=== PATIENT | male | born 2000 | race Caucasian/White ===

== ENCOUNTER 2024-07-10 14:55 | Emergency (ER) | payer OTHER, SELFPAY ==
[2024-07-10 14:59] VITALS: BP 102/87; PULSE 82; RESP 20; TEMP 36.2; O2SAT 100
--- NOTE | 2024-07-10 16:01 | ED.MALEGU ---
HPI - Male Genitourinary General Chief complaint: Urogenital-Male <Chel Nayak PA-C - Last Filed: 07/11/24 09:20> Stated complaint: decreased urination, flank pain <Chel Nayak PA-C - Last Filed: 07/11/24 09:20> Time Seen by Provider: 07/10/24 16:01 <Chel Nayak PA-C - Last Filed: 07/11/24 09:20> Focused HPI: This is a 23 year old male that presents to the ER for left flank pain ongoing over the last couple of days. Reports associated nausea, vomiting. Reports some dysuria. Denies hematuria. GENERAL: Well-appearing, well-nourished, and in no acute distress. HEAD: Normocephalic, atraumatic. CHEST: Clear to auscultation. ?No respiratory distress. HEART: Regular rate and rhythm.? NEURO: ?Alert and oriented x3. Patient screened in triage and initial orders placed.? ?Additional care and disposition to be based upon?diagnostic testing and treatment. <Chel Nayak PA-C - Last Filed: 07/11/24 09:20> History of Present Illness HPI Narrative: I agree with the assessment and documentation of Chel Nayak PA-C. <Melody Orellana, LATASHA - Last Filed: 07/10/24 19:06> Related Data Allergies/Adverse reactions: Allergies Allergy/AdvReac Type Severity Reaction Status Date / Time No Known Allergies Allergy Verified 07/10/24 14:57 <Chel Nayak PA-C - Last Filed: 07/11/24 09:20> Review of Systems Review of Systems: All systems reviewed & are unremarkable except as noted in HPI and below <Melody Orellana, LATASHA - Last Filed: 07/10/24 19:06> Exam Narrative: GENERAL: Well appearing, well-nourished, non-toxic, in no acute distress. HEAD: Normocephalic, atraumatic. NECK: Supple. No adenopathy, no masses. RESPIRATORY: Airway patent, respirations nonlabored. Clear to auscultation bilaterally, no rales, rhonchi, wheezing. CARDIOVASCULAR: Regular rate and rhythm without murmurs, rubs, or gallops. Peripheral pulses 2+ and equal bilaterally. ABDOMINAL: Soft, nontender, nondistended, no hepatosplenomegaly. Normoactive BS. MUSCULOSKELETAL: Moves all extremities. Strength/ROM intact without gross deformities. SKIN: Warm, dry, normal color. No rashes. NEURO: A&O X3. Speech clear. Cranial nerves II-XII grossly intact. Steady gait. No ataxic movements. PSYCHIATRIC: Appropriate mood and affect. Normal interaction. <Melody Orellana APRN - Last Filed: 07/10/24 19:06> Course Vital Signs Vital signs: Vital Signs Temperature 97.1 F L 07/10/24 14:59 Pulse Rate 82 07/10/24 14:59 Respiratory Rate 20 07/10/24 14:59 Blood Pressure 102/87 07/10/24 14:59 Pulse Oximetry 100 07/10/24 14:59 Oxygen Delivery Room Air 07/10/24 14:59 Temperature 97.1 F L 07/10/24 14:59 Pulse Rate 85 07/10/24 18:59 Respiratory Rate 16 07/10/24 18:59 Blood Pressure 126/68 07/10/24 18:59 Pulse Oximetry 99 07/10/24 18:59 Oxygen Delivery Room Air 07/10/24 14:59 <Chel Nayak PA-C - Last Filed: 07/11/24 09:20> Vital Signs Temperature 97.1 F L 07/10/24 14:59 Pulse Rate 82 07/10/24 14:59 Respiratory Rate 20 07/10/24 14:59 Blood Pressure 102/87 07/10/24 14:59 Pulse Oximetry 100 07/10/24 14:59 Oxygen Delivery Room Air 07/10/24 14:59 Temperature 97.1 F L 07/10/24 14:59 Pulse Rate 85 07/10/24 18:59 Respiratory Rate 16 07/10/24 18:59 Blood Pressure 126/68 07/10/24 18:59 Pulse Oximetry 99 07/10/24 18:59 Oxygen Delivery Room Air 07/10/24 14:59 <Melody Orellana APRN - Last Filed: 07/10/24 19:06> MDM - Male Genitourinary MDM Narrative Medical decision making narrative: This is a 23 year old male that presents to the ER for left flank pain ongoing over the last couple of days. Reports associated nausea, vomiting. Reports some dysuria. Denies hematuria. Labs Ordered: CBC, CMP, lipase, UA Imaging Ordered: CT abdomen pelvis w/o con Medications Ordered: Toradol IV, Dilaudid IV, 1 L normal saline IV bolus Results: Patient's CT abdomen pelvis scan indicates Left lower ureteric stone with left hydroureter and hydronephrotic changes. No evidence of appendicitis, diverticulitis or intestinal obstruction. Left lower lobe granuloma with adjacent small nodules which may be granulomas 6 months follow-up chest CT is advised. Diagnosis: L lower ureteric stone Consults: urology (outpatient) Patient Education/Shared MDM: Results shared with patient. He endorses significant pain improvement following medication administration. Patient strongly advised to maintain hydration status upon discharge and follow-up with urology. He will be discharged home with prescription for Flomax and [place]. Strict return precautions provided. Patient verbalized understanding is in agreement with plan. Vital signs stable at time of discharge. All questions answered. <Melody Orellana APRN - Last Filed: 07/10/24 19:06> Differential Diagnosis Differential diagnosis: Likely urinary tract infection, urethritis, prostatitis, acute retention of urine and other (kidney stone) <Melody Orellana APRN - Last Filed: 07/10/24 19:06> Lab Data Attestation: I reviewed the patient's lab results. <Melody Orellana APRN - Last Filed: 07/10/24 19:06> Result diagrams: 07/10/24 16:39 07/10/24 16:39 <Chel Nayak PA-C - Last Filed: 07/11/24 09:20> Labs: Lab Results 07/10/24 Range/Units 16:39 WBC 13.9 H (4.5-10.0) K/mm3 RBC 5.24 (4.6-6.20) M/mm3 Hgb 14.9 (14.0-18.0) g/dL Hct 45.9 (42.0-52.0) % MCV 87.6 (80-100) fl MCH 28.4 (26-34) pg MCHC 32.5 (32-36) g/dl RDW 14.0 (11.5-14.5) % Plt Count 264 (150-375) k/mm3 MPV 11.0 H (7.4-10.4) fl Immature Gran % (Auto) 0.2 (0-0.5) % Neut % (Auto) 91.6 H (45.5-73.1) % Lymph % (Auto) 6.1 L (18.3-44.2) % [place] % (Auto) 1.9 L (2.6-8.5) % Eos % (Auto) 0.1 (0-4.4) % Baso % (Auto) 0.1 L (0.2-1.2) % Lymph # (Auto) 0.84 L (0.9-3.2) K/mm3 [place] # (Auto) 0.3 (0.1-0.6) K/mm3 Eos # (Auto) 0.0 (0-0.3) K/mm3 Baso # (Auto) 0.0 (0.0-0.1) K/mm3 Abs Immat Gran (auto) 0.03 (0.00-0.031) K/mm3 Absolute Neuts (auto) 12.7 H (1.3-6.7) K/mm3 Absolute Nucleated RBC 0.000 (0.0-0.012) K/mm3 Nucleated RBC % 0.0 (0.0-0.2) % Sodium 141 (137-145) mmol/L Potassium 3.9 (3.4-5.0) mmol/L Chloride 102 (98-107) mmol/L Carbon Dioxide 24 (22-30) mmol/L Anion Gap 15 H (4-12) mmol/L BUN 15 (9-20) mg/dL Creatinine 1.31 H (0.7-1.3) mg/dL Estim Creat Clear Calc 85 ml/min Estimated GFR > 60 (59 - ) Glucose 94 (65-110) mg/dL Calcium 9.9 (8.4-10.2) mg/dL Total Bilirubin 1.0 (0.2-1.3) mg/dL AST 20 (17-59) U/L ALT 25 (6-50) U/L Alkaline Phosphatase 73 (38-126) U/L Total Protein 8.0 (6.3-8.2) g/dL Albumin 4.9 (3.5-5.1) g/dL Lipase 46 (23-300) U/L Urine Color Dark yellow (Yellow) Urine Appearance Cloudy H (Clear) Urine pH 5.5 (5.0-9.0) Ur Specific [place] 1.031 (1.001-1.035) Urine Protein 1+ H (Negative) mg/dL Urine Glucose (UA) Negative (Negative) mg/dL Urine Ketones 4+ H (Negative) mg/dL Ur Blood (Man) 3+ H (Negative) Urine Nitrate Negative (Negative) Urine Bilirubin Negative (Negative) Urine Urobilinogen 1.0 (<2.0) mg/dL Leukocyte Esterase Rfl Negative (Negative) FEI/UL Urine RBC >100 H (0-2) /hpf Urine WBC 0-5 (0-3) /hpf Ur Squamous Epith Cells None seen (Few) /hpf Urine Bacteria None seen /hpf Urine Casts 3-5 <Chel Nayak PA-C - Last Filed: 07/11/24 09:20> Lab Results 07/10/24 Range/Units 16:39 WBC 13.9 H (4.5-10.0) K/mm3 RBC 5.24 (4.6-6.20) M/mm3 Hgb 14.9 (14.0-18.0) g/dL Hct 45.9 (42.0-52.0) % MCV 87.6 (80-100) fl MCH 28.4 (26-34) pg MCHC 32.5 (32-36) g/dl RDW 14.0 (11.5-14.5) % Plt Count 264 (150-375) k/mm3 MPV 11.0 H (7.4-10.4) fl Immature Gran % (Auto) 0.2 (0-0.5) % Neut % (Auto) 91.6 H (45.5-73.1) % Lymph % (Auto) 6.1 L (18.3-44.2) % [place] % (Auto) 1.9 L (2.6-8.5) % Eos % (Auto) 0.1 (0-4.4) % Baso % (Auto) 0.1 L (0.2-1.2) % Lymph # (Auto) 0.84 L (0.9-3.2) K/mm3 [place] # (Auto) 0.3 (0.1-0.6) K/mm3 Eos # (Auto) 0.0 (0-0.3) K/mm3 Baso # (Auto) 0.0 (0.0-0.1) K/mm3 Abs Immat Gran (auto) 0.03 (0.00-0.031) K/mm3 Absolute Neuts (auto) 12.7 H (1.3-6.7) K/mm3 Absolute Nucleated RBC 0.000 (0.0-0.012) K/mm3 Nucleated RBC % 0.0 (0.0-0.2) % Sodium 141 (137-145) mmol/L Potassium 3.9 (3.4-5.0) mmol/L Chloride 102 (98-107) mmol/L Carbon Dioxide 24 (22-30) mmol/L Anion Gap 15 H (4-12) mmol/L BUN 15 (9-20) mg/dL Creatinine 1.31 H (0.7-1.3) mg/dL Estim Creat Clear Calc 85 ml/min Estimated GFR > 60 (59 - ) Glucose 94 (65-110) mg/dL Calcium 9.9 (8.4-10.2) mg/dL Total Bilirubin 1.0 (0.2-1.3) mg/dL AST 20 (17-59) U/L ALT 25 (6-50) U/L Alkaline Phosphatase 73 (38-126) U/L Total Protein 8.0 (6.3-8.2) g/dL Albumin 4.9 (3.5-5.1) g/dL Lipase 46 (23-300) U/L Urine Color Dark yellow (Yellow) Urine Appearance Cloudy H (Clear) Urine pH 5.5 (5.0-9.0) Ur Specific [place] 1.031 (1.001-1.035) Urine Protein 1+ H (Negative) mg/dL Urine Glucose (UA) Negative (Negative) mg/dL Urine Ketones 4+ H (Negative) mg/dL Ur Blood (Man) 3+ H (Negative) Urine Nitrate Negative (Negative) Urine Bilirubin Negative (Negative) Urine Urobilinogen 1.0 (<2.0) mg/dL Leukocyte Esterase Rfl Negative (Negative) FEI/UL Urine RBC >100 H (0-2) /hpf Urine WBC 0-5 (0-3) /hpf Ur Squamous Epith Cells None seen (Few) /hpf Urine Bacteria None seen /hpf Urine Casts 3-5 <Melody Orellana APRN - Last Filed: 07/10/24 19:06> Imaging Data Attestation: I personally reviewed and interpreted this imaging study as follows: <Melody Orellana APRN - Last Filed: 07/10/24 19:06> Radiologist's impression: Impressions Abdomen/Pelvis CT 07/10/24 16:23 IMPRESSION: Left lower ureteric stone with left hydroureter and hydronephrotic changes. No evidence of appendicitis, diverticulitis or intestinal obstruction. Left lower lobe granuloma with adjacent small nodules which may be granulomas 6 months follow-up chest CT is advised. <Melody Orellana APRN - Last Filed: 07/10/24 19:06> Critical Care Time Critical Care Time Critical Care Time: No <Chel Nayak PA-C - Last Filed: 07/11/24 09:20> Discharge Plan Discharge Clinical Impression: Kidney stone on left side, Acute left flank pain <Chel Nayak PA-C - Last Filed: 07/11/24 09:20> Patient Disposition: Home, Self-Care <Chel Nayak PA-C - Last Filed: 07/11/24 09:20> Condition: Stable <HILDA Hong Last Filed: 07/11/24 09:20> Instructions: Antibiotic Form, Kidney Stones (ED), How to Strain Your Urine (ED), Flank Pain (ED) <HILDA Hong Last Filed: 07/11/24 09:20> Additional Instructions: Please return to the ER with an worsening symptoms. Follow-up with primary care provider in the next 2-3 days and urology as soon as possible. Take all medications as prescribed. <Chel Nayak PA-C - Last Filed: 07/11/24 09:20> Patient Language: Maori <HILDA Hong Last Filed: 07/11/24 09:20> Prescriptions: New hydrocodone-acetaminophen 5-325 mg tablet 1 tablet PO Q4H PRN (Reason: pain) Qty: 10 0RF tamsulosin [Flomax] 0.4 mg capsule 0.4 mg PO DAILY Qty: 10 0RF naproxen 500 mg tablet 500 mg PO BID PRN (Reason: pain) Qty: 10 0RF <Chel Nayak PA-C - Last Filed: 07/11/24 09:20> Follow-up/Referrals: Alisson Hurd MD [Physician] - (urology) Sloan Dodd MD [Physician] - (primary care) PHYSICIAN NOT ON STAFF,NONSTAFF [Non-Staff] - <Chel Nayak PA-C - Last Filed: 07/11/24 09:20> Stand Alone Forms: Work/School Release IP <Chel Nayak PA-C - Last Filed: 07/11/24 09:20> Time of Disposition: 19:07 <Chel Nayak PA-C - Last Filed: 07/11/24 09:20> 19:07 <Melody Orellana APRN - Last Filed: 07/10/24 19:06>
[2024-07-10 16:38] VITALS: BP 142/74; PULSE 79; RESP 13; O2SAT 100
[2024-07-10 17:00] LABS: Basophils Percent Auto 0.1 % (0.2-1.2); Eosinophils Percent Auto 0.1 % (0-4.4); Hematocrit 45.9 % (42.0-52.0); Hemoglobin 14.9 g/dL (14.0-18.0); Immature Granulocyte Absolute 0.03 K/mm3 (0.00-0.031); Immature Granulocyte Percent A 0.2 % (0-0.5); Lymphocytes Absolute Auto 0.84 K/mm3 (0.9-3.2); Lymphocytes Percent Auto 6.1 % (18.3-44.2); Mean Corpuscular HGB Conc 32.5 g/dl (32-36); Mean Corpuscular Hemoglobin 28.4 pg (26-34); Mean Corpuscular Volume 87.6 fl (80-100); Monocytes Absolute Auto 0.3 K/mm3 (0.1-0.6); Monocytes Percent Auto 1.9 % (2.6-8.5); Neutrophils Absolute Auto 12.7 K/mm3 (1.3-6.7); Neutrophils Percent Auto 91.6 % (45.5-73.1); Platelet Count Result 264 k/mm3 (150-375); Red Blood Count 5.24 M/mm3 (4.6-6.20); White Blood Count 13.9 K/mm3 (4.5-10.0)
[2024-07-10 17:03] LABS: Add Urine Microscopic? YES; Appearance Urine Cloudy (Clear); Bacteria Urine None Seen /hpf; Bilirubin Urine Negative (Negative); Blood Urine 3+ (Negative); Color Urine Dark Yellow (Yellow); Glucose Urine UA Negative (Negative); Ketones Urine 4+ mg/dL (Negative); Leukocyte Esterase Ur Negative LEU/UL (Negative); Nitrate Urine Negative (Negative); Protein Urine 1+ mg/dL (Negative); RBC Urine >100 /hpf (0-2); Specific Grav Ur 1.031 (1.001-1.035); Squamous Epithelial Cell Urine None Seen /hpf (Few); WBC Urine 0-5 /hpf (0-3); pH Urine 5.5 (5.0-9.0)
[2024-07-10 17:11] LABS: Alanine Aminotransferase 25 U/L (6-50); Albumin Level 4.9 g/dL (3.5-5.1); Alkaline Phosphatase 73 U/L (38-126); Anion Gap 15 mmol/L (4-12); Aspartate Amino Transferase 20 U/L (17-59); Blood Urea Nitrogen 15 mg/dL (9-20); Calcium 9.9 mg/dL (8.4-10.2); Carbon Dioxide 24 mmol/L (22-30); Chloride 102 mmol/L (98-107); Estimated CRCL calculation 85 ml/min; Estimated Glomerular Filt Rate > 60; Glucose 94 mg/dL (65-110); Lipase 46 U/L (23-300); Potassium 3.9 mmol/L (3.4-5.0); Sodium 141 mmol/L (137-145)
[2024-07-10] MEDS: SODIUM CHLORIDE 0.9% IV 1,000 ML 999 ML IV CONT (17:56)
[2024-07-10] MEDS: KETOROLAC 15 MG/ML VIAL (*BKC) IV PUSH (17:57)
[2024-07-10] MEDS: HYDROmorphone HCL INJ (*CRX) 1 MG/ML SYR 0.5 MG IV PUSH (17:59)
[2024-07-10 18:02] VITALS: BP 138/71; PULSE 63; RESP 13; O2SAT 100
[2024-07-10 18:59] VITALS: BP 126/68; PULSE 85; RESP 16; O2SAT 99
[2024-07-10] MEDS: HYDROcodone/acetaminophen (*CRX) 5-325 MG TABLET 1 TAB PO (19:23)
== END 2024-07-10 19:26 | disposition home or self-care (01) ==
PROVIDERS: Physician Assistant; Emergency Provider Registered Nurse
DX: N20.0 Calculus of kidney (principal)
CPT/HCPCS: 36415; 74176; 80053; 81001; 83690; 85025; 96361; 96374; 96375; 99284; A9270; J1171; J1885; J7030